=== PATIENT | female | born 1945 | race Caucasian/White ===

== ENCOUNTER 2022-01-09 13:15 | Outpatient (RCR) | payer OTHER, SELFPAY ==
--- NOTE | 2022-01-01 10:23 | ONC.NURNOTE ---
Dx: Restless Leg Syndrom (R79.0)
--- NOTE | 2022-01-01 10:24 | ONC.NURNOTE ---
AuthorizatioN: User: Paula Tavera Skye Date: 02/11/21 11:49 Type: Eligibility Determination Note... Request received from [facility] for prior authorization of Ferric Carboxymaltose [id number]. Patient carries [email or web address] as primary insurance. Per Deepika at [facility] no prior authorization is required for Ferric Carboxymaltose. Call Ref #[id number]
[2022-01-02 13:34] VITALS: BP 106/66; PULSE 68; RESP 16; TEMP 36.4; O2SAT 97
[2022-01-02] MEDS: FERRIC CARBOXYMALTOSE 750 MG in 0.9 % SODIUM CHLORIDE 250 ml 250 ML 265 MG IVPB (14:06)
[2022-01-09 13:28] VITALS: BP 117/66; PULSE 75; RESP 16; TEMP 36.5; O2SAT 96
[2022-01-09] MEDS: FERRIC CARBOXYMALTOSE 750 MG in 0.9 % SODIUM CHLORIDE 250 ml 250 ML 1060 MG IVPB (13:49)
== END 2022-07-01 23:59 | disposition home or self-care (01) ==
LOC: CCIC 13:15
PROVIDERS: PCP Internal Medicine; Visit Provider Internal Medicine
DX: R79.0 Abnormal level of blood mineral (principal)
CPT/HCPCS: 96365; J1439; J7050

== ENCOUNTER 2023-09-18 04:07 | Emergency (ER) | payer OTHER, SELFPAY ==
[2023-09-18 04:16] VITALS: BP 146/79; PULSE 72; RESP 20; TEMP 35.9; O2SAT 98; BMI 29.2
[2023-09-18 04:53] LABS: Appearance Urine Cloudy (Clear); Bilirubin Urine Negative (Negative); Blood Urine 3+ (Negative); Color Urine Orange (Yellow); Glucose Urine Trace (Negative); Ketones Urine Negative (Negative); Leukocyte Esterase Urine 3+ (Negative); Nitrite Urine Positive (Negative); Protein Urine 3+ (Negative)
[2023-09-18 05:00] LABS: RBC Urine >100 (0-2); WBC Urine 25-50 (0-5)
[2023-09-18 05:01] LABS: Bacteria Urine Few; Squamous Epithelial Cell Urine Few (None-Few)
--- NOTE | 2023-09-18 05:17 | ED.GENADULT ---
HPI - General Adult General Chief complaint: Urogenital Problems, Female Stated complaint: frequent urination, burning pain Time Seen by Provider: 09/18/23 04:35 Source: patient Mode of arrival: ambulatory Limitations: no limitations History of Present Illness HPI narrative: 78-year-old female presents to the emergency department for evaluation dysuria that started at 11:00 p.m. which is about 6 hours prior to arrival. No fever, no flank pain. No nausea no vomiting. No vaginal discharge. She is not prone to bladder infections but gets 1 every few years or so. No prior history of resistant infections. Not immunocompromised. No history of urological surgeries. Status post hysterectomy. Did take some azo which did improve her pain somewhat but unfortunately none of the clinics will be open today as it is the wee hours of Wednesday therefore she presents to the emergency department. Past medical history notable for restless leg syndrome, type 2 diabetes, hypertension. Medications reviewed, accurate as listed. Note that she is on methadone which interacts with many medications that she is on such a tiny dose that it will not be clinically relevant. ROS notable for the urinary symptoms as described above, otherwise denies times 12 systems besides her chronic conditions. Related Data Home Medications Medication Instructions Recorded Confirmed albuterol sulfate 90 mcg/actuation 2 puff inhalation Q4H PRN 01/09/22 09/18/23 aerosol inhaler atorvastatin 40 mg tablet 40 mg PO DAILY 01/09/22 09/18/23 baclofen 10 mg tablet 10 mg PO Q8H PRN 01/09/22 09/18/23 fluticasone propionate 50 1 spray intranasal Q12H PRN 01/09/22 09/18/23 mcg/actuation nasal spray,suspension gabapentin 600 mg tablet 600 mg PO HS PRN 01/09/22 09/18/23 hydrochlorothiazide 25 mg tablet 25 mg PO DAILY 01/09/22 09/18/23 losartan 100 mg tablet 100 mg PO DAILY 01/09/22 09/18/23 metformin 1,000 mg tablet 1,000 mg PO DAILY 01/09/22 09/18/23 methadone 5 mg tablet 5 mg PO HS PRN 01/09/22 09/18/23 montelukast 10 mg tablet 10 mg PO DAILY PRN 01/09/22 09/18/23 ropinirole 0.5 mg tablet 0.5 mg PO HS 01/09/22 09/18/23 carbidopa 25 mg-levodopa 100 mg 1 tab PO QPM PRN 09/18/23 09/18/23 tablet Previous Rx's Medication Instructions Recorded ciprofloxacin HCl 250 mg tablet 250 mg PO BID #10 tabs 09/18/23 Allergies Allergy/AdvReac Type Severity Reaction Status Date / Time Penicillins Allergy Intermediate Rash Verified 09/18/23 04:23 propoxyphene [From Darvon] Allergy Mild Rash Verified 09/18/23 04:23 TAMIR Inhibitors AdvReac Mild Cough Verified 09/18/23 04:23 PFSH [facility] Social History Smoking Status: Never smoker Do you use any of these nicotine containing products: None Second hand tobacco smoke exposure: No How often do you have a drink containing alcohol: never AUDIT-C Alcohol total score: 0 Non-prescribed substance use: denies use service: No Exam Const: Vital Signs, click to edit/add: Vital Signs - 24 hr 09/18/23 04:16 Temperature 96.6 F L Pulse Rate [Right Pulse Oximeter] 72 Respiratory Rate 20 Blood Pressure [Ri ght Upper Arm] 146/79 H Pulse Oximetry 98 Oxygen Delivery Me thod Room Air Documenting provider has reviewed patient's vital signs: yes Common normals: no apparent distress General appearance: cooperative, comfortable and well kempt HENMT: Common normals: normocephalic Head and scalp: normocephalic Face and sinus: normal facial exam Eye: General eye: normal appearance of both eyes Resp: Common normals: normal respiratory effort Effort & inspection: able to speak in complete sentences GI: Common normals: Normal to inspection, nondistended, normoactive bowel sounds present, soft to palpation and no masses Palpation: soft Psych: Common normals: speech normal Appearance: well kempt Activity/motor behavior: appropriate eye contact Speech: normal speech Insight: insight good Judgement: judgment good Skin: Common normals: no rashes or lesions noted General skin exam: no rashes or lesions noted Course Course ED Course: 78-year-old female with dysuria and urinalysis suspicious for bladder infection. No fevers or signs of significant complication to question pyelonephritis, obstruction, nephrolithiasis or gynecological issue. She is status post hysterectomy. Recommend ciprofloxacin due to penicillin allergy. 500 mg p.o. x1 here in the ED and then 250 b.i.d. for 5 days. Continue [id number] azo. Tylenol and ibuprofen okay to use. Should be improving in 48 hours. If not improving in 3 days, follow-up clinic visit. Alarm symptoms reviewed that would warrant ED presentation, she verbalizes understanding and agreement Vital Signs Vital signs: Initial Vital Signs Temperature 96.6 F L 09/18/23 04:16 Temperature Source Temporal Artery Scan 09/18/23 04:16 Pulse Rate 72 09/18/23 04:16 Pulse Rhythm Regular 09/18/23 04:16 Pulse Strength 3+ Normal 09/18/23 04:16 Respiratory Rate 20 09/18/23 04:16 Blood Pressure 146/79 H 09/18/23 04:16 Blood Pressure Mean 101 09/18/23 04:16 Blood Pressure Position Sitting 09/18/23 04:16 Pulse Oximetry 98 09/18/23 04:16 Oxygen Delivery Method Room Air 09/18/23 04:16 Vital Signs Temperature 96.6 F L 09/18/23 04:16 Pulse Rate 72 09/18/23 04:16 Respiratory Rate 20 09/18/23 04:16 Blood Pressure 146/79 H 09/18/23 04:16 Pulse Oximetry 98 09/18/23 04:16 Oxygen Delivery Method Room Air 09/18/23 04:16 Temperature 96.6 F L 09/18/23 04:16 Pulse Rate 72 09/18/23 04:16 Respiratory Rate 20 09/18/23 04:16 Blood Pressure 146/79 H 09/18/23 04:16 Pulse Oximetry 98 09/18/23 04:16 Oxygen Delivery Method Room Air 09/18/23 04:16 Medical Decision Making Lab Data Lab results reviewed: Yes I reviewed the patient's lab results Lab results narrative: Suspicious for urinary infection. Labs: Lab Results 09/18/23 Range/Units 04:30 Urine Color [place] A (Yellow) Urine Appearance Cloudy A (Clear) Urine pH 6.0 (5.0-8.5) Ur Specific [place] 1.010 (1.000-1.030) Urine Protein 3+ A (Negative) Urine Glucose (UA) Trace A (Negative) Urine Ketones Negative (Negative) Urine Blood 3+ A (Negative) Urine Nitrite Positive A (Negative) Urine Bilirubin Negative (Negative) Urine Urobilinogen 1.0 (0.2-1.0) Ur Leukocyte Esterase 3+ A (Negative) Urine RBC >100 A (0-2) Urine WBC 25-50 A (0-5) Ur Squamous Epith Cells Few (None-Few) Urine Bacteria Few A (None) Discharge Plan Discharge Clinical Impression: Urinary tract infection Patient Disposition: Home, Self-Care Condition: Stable Instructions: Urinary Tract Infection in Older Adults (ED) Additional Instructions: As we discussed, your urine test is consistent with a bladder infection. I am starting you on an antibiotic, ciprofloxacin. Take 1 pill 2 times daily for 5 days. Your 1st dose was given here in the emergency department. It is okay to continue taking [id number] azo as needed for pain. Drink lots of water. It is okay to use Tylenol and/or ibuprofen for additional discomfort. Symptoms should improve markedly in about 48 hours. We will culture the urine and call if we need to switch antibiotics. This is unlikely. Any severe worsening like fever, severe back pain, weakness or mental status changes would warrant a repeat visit to the emergency room. Activity Level: No Restrictions Discharge Diet: Regular Prescriptions: New ciprofloxacin HCl 250 mg tablet 250 mg PO BID Qty: 10 0RF No Action atorvastatin 40 mg tablet 40 mg PO DAILY gabapentin 600 mg tablet 600 mg PO HS PRN baclofen 10 mg tablet 10 mg PO Q8H PRN metformin 1,000 mg tablet 1,000 mg PO DAILY ropinirole 0.5 mg tablet 0.5 mg PO HS montelukast 10 mg tablet 10 mg PO DAILY PRN hydrochlorothiazide 25 mg tablet 25 mg PO DAILY albuterol sulfate 90 mcg/actuation HFA aerosol inhaler 2 puff INHALATION Q4H PRN methadone 5 mg tablet 5 mg PO HS PRN losartan 100 mg tablet 100 mg PO DAILY fluticasone propionate 50 mcg/actuation spray,suspension 1 spray INTRANASAL Q12H PRN carbidopa-levodopa 25-100 mg tablet 1 tab PO QPM PRN Follow Up/Referrals: Emigdio John MD [Primary Care Provider] - Stand Alone Forms: [employer] Info Instructions
[2023-09-18] MEDS: CIPROFLOXACIN 500 MG TABLET PO (05:20)
== END 2023-09-18 05:25 | disposition home or self-care (01) ==
LOC: ED 05:22
PROVIDERS: Emergency Provider Family Medicine; PCP Family Medicine
DX: N39.0 Urinary tract infection, site not specified (principal)
CPT/HCPCS: 81001; 87086; 87186; 99283; A9270